=== PATIENT | female | born 1940 | race Caucasian/White ===

== ENCOUNTER 2023-02-01 21:39 | Inpatient (IN) | payer OTHER, BC ==
[~2023-02-01] VITALS: Ht 157.5 cm; Wt 64.0 kg
[2023-02-01] MEDS ORDERED: IPRATROPIUM/ALBUTEROL SULFATE 3 ML AMPUL.NEB (DUONEB) INH ONE (21:45)
[2023-02-01 21:52] VITALS: BP_SYST 146
[2023-02-01 22:20] LABS: BASOPHILS # (AUTO) 0.1 K/uL (0.0-0.2); BASOPHILS % (AUTO) 0.6 % (0.0-2.0); EOSINOPHILS # (AUTO) 0.1 K/uL (0.0-0.4); EOSINOPHILS % (AUTO) 1.3 % (0.0-4.0); HEMATOCRIT 40.1 % (36-48); LYMPHOCYTES # (AUTO) 2.7 K/uL (1.0-5.5); LYMPHOCYTES % (AUTO) 26.1 % (20.5-51.5); MEAN CORPUSCULAR HEMOGLOBIN 29 pg (27-31); MEAN CORPUSCULAR HGB CONC 32 % (32-36); MEAN CORPUSCULAR VOLUME 91 fL (79.0-98.0); MONOCYTES # (AUTO) 0.8 K/uL (0.0-1.0); MONOCYTES % (AUTO) 7.7 % (1.7-9.3); NEUTROPHILS # (AUTO) 6.6 K/uL (1.8-7.7); NEUTROPHILS % (AUTO) 64.3 % (40.0-70.0); PLATELET COUNT (AUTO) 215 K/uL (130-430); RED BLOOD CELL COUNT(AUTO) 4.44 MIL/uL (4.2-6.2); RED CELL DISTRIBUTION WIDTH 14.1 % (9.0-15.0); WHITE BLOOD COUNT (AUTO) 10.3 K/uL (4.8-10.8)
[2023-02-01 22:47] LABS: ALANINE AMINOTRANSFERASE 25 U/L (12-78); ALBUMIN 3.1 g/dL (3.4-4.8); ANION GAP 5 (5-15); ASPARTATE AMINOTRANSFERASE 15 U/L (10-37); CALCIUM 8.1 mg/dL (8.4-11.0); CHLORIDE 101 mmol/L (98-107); CREATININE 0.89 mg/dL (0.55-1.30); GLUCOSE 248 mg/dL (70-99); TOTAL BILIRUBIN 0.3 mg/dL (0.0-1.0); UREA NITROGEN, BLOOD 17 mg/dL (8-21)
[2023-02-02] MEDS ORDERED: ASPIRIN 325 MG TABLET PO ONE (00:15)
[2023-02-02] MEDS ORDERED: POTASSIUM CHLORIDE 20 MEQ TAB.PRT.SR PO ONE (01:15)
[2023-02-02 01:57] VITALS: BP_SYST 142
[2023-02-02 02:07] LABS: BILIRUBIN,URINE NEGATIVE (NEGATIVE); BLOOD, URINE NEGATIVE (NEGATIVE); CLARITY/URINE CLEAR (CLEAR); COLOR,URINE YELLOW (YELLOW); GLUCOSE,URINE NEGATIVE (NEGATIVE); KETONES,URINE NEGATIVE (NEGATIVE); LEUKOCYTE ESTERASE ,URINE NEGATIVE (NEGATIVE); NITRITE, URINE NEGATIVE (NEGATIVE); PROTEIN URINE NEGATIVE (NEGATIVE); UROBILINOGEN,URINE 0.2 (0.2-1.0)
[2023-02-02] MEDS ORDERED: LORazepam 1 MG TABLET PO ONE (02:30)
[2023-02-02 05:36] LABS: PROTHROMBIN TIME 9.9 SECS (9.5-12.5)
[2023-02-02 06:03] LABS: BASOPHILS % (AUTO) 0.5 % (0.0-2.0); EOSINOPHILS # (AUTO) 0.1 K/uL (0.0-0.4); HEMATOCRIT 38.6 % (36-48); HEMOGLOBIN 12.5 g/dL (12.0-16.0); LYMPHOCYTES # (AUTO) 1.6 K/uL (1.0-5.5); LYMPHOCYTES % (AUTO) 17.5 % (20.5-51.5); MEAN CORPUSCULAR HEMOGLOBIN 29 pg (27-31); MEAN CORPUSCULAR HGB CONC 32 % (32-36); MEAN CORPUSCULAR VOLUME 90 fL (79.0-98.0); MONOCYTES # (AUTO) 0.8 K/uL (0.0-1.0); MONOCYTES % (AUTO) 8.5 % (1.7-9.3); NEUTROPHILS # (AUTO) 6.7 K/uL (1.8-7.7); NEUTROPHILS % (AUTO) 72.5 % (40.0-70.0); PLATELET COUNT (AUTO) 200 K/uL (130-430); RED BLOOD CELL COUNT(AUTO) 4.27 MIL/uL (4.2-6.2); RED CELL DISTRIBUTION WIDTH 14.6 % (9.0-15.0); WHITE BLOOD COUNT (AUTO) 9.2 K/uL (4.8-10.8)
[2023-02-02 06:43] LABS: ALANINE AMINOTRANSFERASE 24 U/L (12-78); ALBUMIN 2.9 g/dL (3.4-4.8); ANION GAP 8 (5-15); ASPARTATE AMINOTRANSFERASE 13 U/L (10-37); CALCIUM 7.7 mg/dL (8.4-11.0); CHLORIDE 102 mmol/L (98-107); CHOLESTEROL 175 mg/dL (<200); CREATININE 0.68 mg/dL (0.55-1.30); GLUCOSE 114 mg/dL (70-99); HDL CHOLESTEROL 49 mg/dL (>55); TOTAL BILIRUBIN 0.3 mg/dL (0.0-1.0); TRIGLYCERIDES 185 mg/dL (30-150); UREA NITROGEN, BLOOD 15 mg/dL (8-21)
[2023-02-02 08:00] VITALS: BP_SYST 118
[2023-02-02] MEDS ORDERED: FLUTICASONE 250 mCg/SALMETEROL 50 mCg DISKUS W.DEV INH SCH (09:00)
[2023-02-02] MEDS: PANTOPRAZOLE SODIUM 40 MG TAB PO SCH (09:09)
[2023-02-02] MEDS ORDERED: IPRATROPIUM/ALBUTEROL SULFATE 3 ML AMPUL.NEB (DUONEB) INH SCH (11:00)
[2023-02-02 12:00] VITALS: BP_SYST 118
[2023-02-02] MEDS: ALBUTEROL SULFATE 0.083% 2.5 MG/3 ML VIAL.NEB INH SCH ×2 (13:00→20:01)
[2023-02-02] MEDS: ACETAMINOPHEN 325 MG TABLET PO PRN ×2 (13:08→19:50)
[2023-02-02 16:00] VITALS: BP_SYST 108
[2023-02-02] MEDS: LEVOFLOXACIN 250 MG/D5W 50 ML IV SCH (18:27)
[2023-02-02 20:00] VITALS: BP_SYST 127
[2023-02-02] MEDS: BUDESONIDE 0.5 MG/2 ML AMPUL.NEB INH SCH (20:01)
[2023-02-02] MEDS: LORazepam 1 MG TABLET PO SCH (21:06)
[2023-02-02] MEDS: DOCUSATE SODIUM 100 MG CAPSULE PO SCH (21:06)
[2023-02-03] MEDS: ALBUTEROL SULFATE 0.083% 2.5 MG/3 ML VIAL.NEB INH SCH ×4 (01:39→20:12)
[2023-02-03 02:15] VITALS: BP_SYST 110
[2023-02-03] MEDS: ACETAMINOPHEN 325 MG TABLET PO PRN ×4 (02:30→23:58)
[2023-02-03 06:15] LABS: BASOPHILS % (AUTO) 0.4 % (0.0-2.0); EOSINOPHILS # (AUTO) 0.1 K/uL (0.0-0.4); EOSINOPHILS % (AUTO) 1.6 % (0.0-4.0); HEMATOCRIT 38.4 % (36-48); HEMOGLOBIN 12.4 g/dL (12.0-16.0); LYMPHOCYTES # (AUTO) 1.2 K/uL (1.0-5.5); LYMPHOCYTES % (AUTO) 14.6 % (20.5-51.5); MEAN CORPUSCULAR HEMOGLOBIN 30 pg (27-31); MEAN CORPUSCULAR HGB CONC 32 % (32-36); MEAN CORPUSCULAR VOLUME 91 fL (79.0-98.0); MONOCYTES # (AUTO) 0.6 K/uL (0.0-1.0); MONOCYTES % (AUTO) 7.8 % (1.7-9.3); NEUTROPHILS # (AUTO) 6.1 K/uL (1.8-7.7); NEUTROPHILS % (AUTO) 75.6 % (40.0-70.0); PLATELET COUNT (AUTO) 197 K/uL (130-430); RED BLOOD CELL COUNT(AUTO) 4.21 MIL/uL (4.2-6.2); RED CELL DISTRIBUTION WIDTH 14.7 % (9.0-15.0); WHITE BLOOD COUNT (AUTO) 8.1 K/uL (4.8-10.8)
[2023-02-03 06:31] LABS: PROTHROMBIN TIME 9.9 SECS (9.5-12.5)
[2023-02-03 06:48] LABS: ALANINE AMINOTRANSFERASE 20 U/L (12-78); ALBUMIN 2.7 g/dL (3.4-4.8); ANION GAP 6 (5-15); ASPARTATE AMINOTRANSFERASE 11 U/L (10-37); CALCIUM 7.7 mg/dL (8.4-11.0); CHLORIDE 104 mmol/L (98-107); CHOLESTEROL 175 mg/dL (<200); CREATININE 0.73 mg/dL (0.55-1.30); GLUCOSE 130 mg/dL (70-99); HDL CHOLESTEROL 49 mg/dL (>55); LIPASE 92 U/L (73-393); TOTAL BILIRUBIN 0.4 mg/dL (0.0-1.0); TRIGLYCERIDES 154 mg/dL (30-150); UREA NITROGEN, BLOOD 13 mg/dL (8-21)
[2023-02-03 07:51] VITALS: BP_SYST 119
[2023-02-03] MEDS: BUDESONIDE 0.5 MG/2 ML AMPUL.NEB INH SCH ×2 (08:04→20:13)
[2023-02-03] MEDS: PANTOPRAZOLE SODIUM 40 MG TAB PO SCH (08:40)
[2023-02-03 11:20] VITALS: BP_SYST 101
[2023-02-03] MEDS: BISACODYL 5 MG TABLET.DR (DULCOLAX) PO PRN (17:20)
[2023-02-03 17:21] VITALS: BP_SYST 107
[2023-02-03] MEDS: LEVOFLOXACIN 250 MG/D5W 50 ML IV SCH (17:21)
[2023-02-03] MEDS: DOCUSATE SODIUM 100 MG CAPSULE PO SCH (21:59)
[2023-02-03] MEDS: LORazepam 1 MG TABLET PO SCH (21:59)
[2023-02-04 00:45] VITALS: BP_SYST 122
[2023-02-04] MEDS: ALBUTEROL SULFATE 0.083% 2.5 MG/3 ML VIAL.NEB INH SCH ×4 (01:00→19:04)
[2023-02-04] MEDS: IPRATROPIUM/ALBUTEROL SULFATE 3 ML AMPUL.NEB (DUONEB) INH PRN (02:46)
[2023-02-04] MEDS: BUDESONIDE 0.5 MG/2 ML AMPUL.NEB INH SCH ×2 (07:05→19:05)
[2023-02-04 08:08] VITALS: BP_SYST 127
[2023-02-04] MEDS: PANTOPRAZOLE SODIUM 40 MG TAB PO SCH (08:32)
[2023-02-04] MEDS: ACETAMINOPHEN 325 MG TABLET PO PRN ×3 (08:33→23:32)
[2023-02-04 15:30] VITALS: BP_SYST 123
[2023-02-04] MEDS: LEVOFLOXACIN 250 MG/D5W 50 ML IV SCH (17:42)
[2023-02-04 20:00] VITALS: BP_SYST 133
[2023-02-04] MEDS: BISACODYL 5 MG TABLET.DR (DULCOLAX) PO PRN (20:50)
[2023-02-04] MEDS: DOCUSATE SODIUM 100 MG CAPSULE PO SCH (20:50)
[2023-02-04] MEDS: LORazepam 1 MG TABLET PO SCH (20:51)
[2023-02-05] VITALS: BP_SYST 169
[2023-02-05] MEDS: ALBUTEROL SULFATE 0.083% 2.5 MG/3 ML VIAL.NEB INH SCH ×4 (00:08→19:58)
[2023-02-05] MEDS: ACETAMINOPHEN 325 MG TABLET PO PRN ×3 (04:40→22:27)
[2023-02-05] MEDS: BUDESONIDE 0.5 MG/2 ML AMPUL.NEB INH SCH ×2 (07:00→19:58)
[2023-02-05 08:48] VITALS: BP_SYST 105
[2023-02-05] MEDS: LORazepam 1 MG TABLET PO SCH (09:00)
[2023-02-05] MEDS: PANTOPRAZOLE SODIUM 40 MG TAB PO SCH (10:16)
[2023-02-05] MEDS: methylPREDNISolone SOD SUCC/PF 62.5 MG/ML VIAL IVP SCH ×2 (14:58→22:33)
[2023-02-05] MEDS: ALPRAZolam 0.25 MG TABLET PO PRN ×2 (14:59→22:27)
[2023-02-05 16:27] VITALS: BP_SYST 122
[2023-02-05] MEDS: LEVOFLOXACIN 250 MG/D5W 50 ML IV SCH (19:07)
[2023-02-05] MEDS: BISACODYL 5 MG TABLET.DR (DULCOLAX) PO PRN (22:27)
[2023-02-05] MEDS: DOCUSATE SODIUM 100 MG CAPSULE PO SCH (22:28)
[2023-02-06] VITALS: BP_SYST 114
[2023-02-06] MEDS: ALBUTEROL SULFATE 0.083% 2.5 MG/3 ML VIAL.NEB INH SCH ×4 (01:00→19:30)
[2023-02-06] MEDS: ACETAMINOPHEN 325 MG TABLET PO PRN ×3 (04:17→22:58)
[2023-02-06] MEDS: IPRATROPIUM/ALBUTEROL SULFATE 3 ML AMPUL.NEB (DUONEB) INH PRN (04:34)
[2023-02-06] MEDS: ALPRAZolam 0.25 MG TABLET PO PRN ×3 (04:38→22:53)
[2023-02-06] MEDS: methylPREDNISolone SOD SUCC/PF 62.5 MG/ML VIAL IVP SCH ×3 (06:56→22:59)
[2023-02-06] MEDS: BUDESONIDE 0.5 MG/2 ML AMPUL.NEB INH SCH ×2 (07:08→19:30)
[2023-02-06 08:00] VITALS: BP_SYST 115
[2023-02-06] MEDS: PANTOPRAZOLE SODIUM 40 MG TAB PO SCH (09:06)
[2023-02-06 12:00] VITALS: BP_SYST 132
[2023-02-06 16:00] VITALS: BP_SYST 149
[2023-02-06] MEDS: BISACODYL 5 MG TABLET.DR (DULCOLAX) PO PRN (22:54)
[2023-02-06] MEDS: DOCUSATE SODIUM 100 MG CAPSULE PO SCH (22:59)
[2023-02-07 02:01] VITALS: BP_SYST 161
[2023-02-07] MEDS: methylPREDNISolone SOD SUCC/PF 62.5 MG/ML VIAL IVP SCH ×2 (06:27→13:49)
[2023-02-07] MEDS: ACETAMINOPHEN 325 MG TABLET PO PRN ×2 (06:27→13:20)
[2023-02-07] MEDS: ALPRAZolam 0.25 MG TABLET PO PRN ×2 (06:30→13:55)
[2023-02-07] MEDS: IPRATROPIUM/ALBUTEROL SULFATE 3 ML AMPUL.NEB (DUONEB) INH PRN ×3 (06:59→13:07)
[2023-02-07] MEDS: ALBUTEROL SULFATE 0.083% 2.5 MG/3 ML VIAL.NEB INH SCH ×3 (07:05→19:30)
[2023-02-07] MEDS: BUDESONIDE 0.5 MG/2 ML AMPUL.NEB INH SCH ×2 (07:06→19:45)
[2023-02-07 08:00] VITALS: BP_SYST 125
[2023-02-07] MEDS ORDERED: levoFLOXacin 250 MG TABLET PO SCH (10:00)
[2023-02-07 10:06] LABS: ANION GAP 2 (5-15); CALCIUM 8.7 mg/dL (8.4-11.0); CHLORIDE 104 mmol/L (98-107); CREATININE 0.66 mg/dL (0.55-1.30); GLUCOSE 161 mg/dL (70-99); UREA NITROGEN, BLOOD 21 mg/dL (8-21)
[2023-02-07] MEDS: PANTOPRAZOLE SODIUM 40 MG TAB PO SCH (10:17)
[2023-02-07 10:21] LABS: BASOPHILS % (AUTO) 0.2 % (0.0-2.0); EOSINOPHILS % (AUTO) 0.1 % (0.0-4.0); HEMATOCRIT 40.1 % (36-48); LYMPHOCYTES # (AUTO) 0.7 K/uL (1.0-5.5); LYMPHOCYTES % (AUTO) 8.6 % (20.5-51.5); MEAN CORPUSCULAR HEMOGLOBIN 30 pg (27-31); MEAN CORPUSCULAR HGB CONC 33 % (32-36); MEAN CORPUSCULAR VOLUME 92 fL (79.0-98.0); MONOCYTES # (AUTO) 0.5 K/uL (0.0-1.0); MONOCYTES % (AUTO) 6.5 % (1.7-9.3); NEUTROPHILS # (AUTO) 6.8 K/uL (1.8-7.7); NEUTROPHILS % (AUTO) 84.6 % (40.0-70.0); PLATELET COUNT (AUTO) 237 K/uL (130-430); RED BLOOD CELL COUNT(AUTO) 4.37 MIL/uL (4.2-6.2); RED CELL DISTRIBUTION WIDTH 14.8 % (9.0-15.0)
[2023-02-07 12:00] VITALS: BP_SYST 104
[2023-02-07 16:00] VITALS: BP_SYST 116
[2023-02-07 20:42] VITALS: BP_SYST 94
[2023-02-07] MEDS ORDERED: FUROSEMIDE 20 MG TABLET PO ONE (21:00)
== END 2023-02-07 21:20 | disposition home health service (06) | DRG 193 ==
LOC: SED 21:39 → STU 02-02 00:15 → SMU 02-03 09:24
PROVIDERS: ADMIT Internal Medicine; ATTEND Internal Medicine
DX: J18.9 Pneumonia, unspecified organism (principal); J96.01 Acute respiratory failure with hypoxia; J44.1 Chronic obstructive pulmonary disease with (acute) exacerbation; I24.8 Other forms of acute ischemic heart disease; J44.0 Chronic obstructive pulmonary disease with (acute) lower respiratory infection; J81.1 Chronic pulmonary edema; N39.0 Urinary tract infection, site not specified; I10 Essential (primary) hypertension; G89.29 Other chronic pain; G47.00 Insomnia, unspecified; K58.1 Irritable bowel syndrome with constipation; M54.30 Sciatica, unspecified side; J20.9 Acute bronchitis, unspecified; F41.9 Anxiety disorder, unspecified; E11.9 Type 2 diabetes mellitus without complications; Z88.8 Allergy status to other drugs, medicaments and biological substances; Z79.899 Other long term (current) drug therapy; Z87.440 Personal history of urinary (tract) infections; Z87.891 Personal history of nicotine dependence; Z90.49 Acquired absence of other specified parts of digestive tract; Z90.710 Acquired absence of both cervix and uterus
CPT/HCPCS: 36415; 71045; 71270-TC; 76376; 80048; 80053; 80061; 81003; 83690; 83735; 83880; 84484; 85025; 85610-TC; 85730-TC; 87086; 93005; 93306; 94640; 94760; 99291; G0378; J1956; J2930; J7613; J7626